=== PATIENT | female | born 2000 | race Caucasian/White ===

== ENCOUNTER → 2024-04-27 09:00 | Outpatient (REF) | payer OTHER, SELFPAY | LOC: PNTC 09:00 | PROVIDERS: ATTENDING PHYSICIAN Obstetrics & Gynecology | DX: Z29.13 Encounter for prophylactic Rho(D) immune globulin (principal) | CPT/HCPCS: 36415; 86850; 86900; 86901; 96372; J2790 ==

== ENCOUNTER 2024-07-05 09:32 | Observation (INO) | payer OTHER, SELFPAY ==
[2024-07-05 10:06] VITALS: BP 95/56; BMI 33.5
[2024-07-05 10:08] LABS: % Basophils 0.3 % (0-2); % Eosinophils 0.2 % (0-6); % Immature Granulocytes 0.6 % (0-0.5); % Monocytes 4.2 % (1.7-9.3); % Neutrophils 89.7 % (42.2-75.2); Absolute Immature Granulocytes 0.1 10^3/uL (0-0.05); Absolute Lymphocytes 0.5 10^3/uL (1.2-3.4); Absolute Monocytes 0.5 10^3/uL (0.1-0.6); Absolute Neutrophils 9.7 10^3/uL (1.4-6.5); Hematocrit 33.5 % (37.0-47.0); Hemoglobin 11.5 g/dL (12.0-16.0); Mean Corp Hgb Conc. 34.3 g/dL (33.0-37.0); Mean Corpuscular Hgb 30.5 pg (27.0-31.0); Mean Corpuscular Volume 88.9 fL (81.0-99.0); Mean Platelet Volume 10.5 fL (7.4-10.4); Nucleated Red Blood Cells % 0 %; Platelet Count 205 10^3/uL (130-400); Red Blood Cell Count 3.77 10^6/uL (4.20-5.40); Red Cell Dist. Width 13.4 % (11.5-14.5); White Blood Cell Count 10.8 10^3/uL (4.8-10.8)
[2024-07-05 10:20] LABS: ALT (SGPT) 17 U/L (0-35); AST (SGOT) 19 U/L (14-36); Albumin 3.5 g/dl (3.5-5.0); Alkaline Phosphatase 141 U/L (38-126); Blood Urea Nitrogen 9 mg/dl (7-17); Carbon Dioxide 22 mmol/L (22-30); Chloride 104 mmol/L (98-107); Estimated Creatinine Clearance > 125 ml/min; Glucose 95 mg/dl (70-99); Potassium 3.9 mmol/L (3.5-5.1); Sodium 133 mmol/L (135-145); Total Bilirubin 0.7 mg/dl (0.2-1.3); Total Protein 6.3 g/dl (6.3-8.2); eGFR > 60.00
[2024-07-05 10:29] LABS: Urine Albumin 2+ (Neg - Trace); Urine Bilirubin Negative (Negative); Urine Character Slightly Cloudy (Clear); Urine Color Yellow; Urine Glucose Negative (Negative); Urine Ketone 3+ (Negative); Urine Leukocyte 2+ (Negative); Urine Nitrite Positive (Negative); Urine Occult Blood Negative (Negative); Urine Urobilinogen Negative (Neg - 1+)
[2024-07-05 11:31] LABS: Urine Protein 8 mg/dl
[2024-07-05 11:53] LABS: Urine Amorphous Seen; Urine Squamous Cell >30 /LPF (Few)
[2024-07-05 11:54] LABS: Urine Bacteria Many (Negative); Urine Red Blood Cell 0-2 /HPF (0-2)
[2024-07-05] MEDS: PEPCID 20 MG IV (12:13)
[2024-07-05] MEDS: NSS (PRESERVATIVE FREE) 8 ML IV (12:13)
[2024-07-05] MEDS: LR 1000 IV (12:18)
[2024-07-05] MEDS: TYLENOL 650 MG PO (14:03)
[2024-07-05] MEDS: ZOFRAN 4 MG IV (15:21)
== END 2024-07-05 16:20 | disposition home or self-care (01) ==
LOC: LDRP 09:32
PROVIDERS: ADMITTING PHYSICIAN Obstetrics & Gynecology
DX: O26.893 Other specified pregnancy related conditions, third trimester (principal); R11.2 Nausea with vomiting, unspecified; R19.7 Diarrhea, unspecified; O99.820 Streptococcus B carrier state complicating pregnancy; Z3A.37 37 weeks gestation of pregnancy; K21.9 Gastro-esophageal reflux disease without esophagitis; E86.0 Dehydration; R51.9 Headache, unspecified; R53.81 Other malaise
CPT/HCPCS: 80053; 81003; 81015; 82570; 84156; 85025; 87086; G0378

== ENCOUNTER 2024-07-22 02:12 | Inpatient (IN) | payer OTHER, SELFPAY ==
[2024-07-22 02:33] VITALS: BP 124/81; BMI 33.7
[2024-07-22] MEDS: LR 1000 IV ×2 (03:26→08:00)
[2024-07-22 03:38] LABS: % Basophils 0.2 % (0-2); % Eosinophils 0.4 % (0-6); % Immature Granulocytes 0.9 % (0-0.5); % Lymphocytes 19.2 % (20.5-51.1); % Monocytes 6.2 % (1.7-9.3); % Neutrophils 73.1 % (42.2-75.2); Absolute Immature Granulocytes 0.1 10^3/uL (0-0.05); Absolute Monocytes 0.7 10^3/uL (0.1-0.6); Absolute Neutrophils 7.7 10^3/uL (1.4-6.5); Hemoglobin 10.9 g/dL (12.0-16.0); Mean Corpuscular Hgb 29.9 pg (27.0-31.0); Mean Corpuscular Volume 90.7 fL (81.0-99.0); Mean Platelet Volume 10.7 fL (7.4-10.4); Nucleated Red Blood Cells % 0 %; Platelet Count 212 10^3/uL (130-400); Red Blood Cell Count 3.64 10^6/uL (4.20-5.40); Red Cell Dist. Width 13.3 % (11.5-14.5); White Blood Cell Count 10.5 10^3/uL (4.8-10.8)
[2024-07-22] MEDS: PENICILLIN 110 UNITS IV (04:03)
[2024-07-22] MEDS: STADOL 1 MG IV ×2 (05:31→09:28)
[2024-07-22] MEDS: PENICILLIN 55 UNITS IV ×4 (08:00→19:52)
[2024-07-22] MEDS: FENTANYL/BUPIVACAINE 100 EPIDURAL ×2 (11:32→19:59)
[2024-07-22] MEDS: SUBLIMAZE 100 MCG EPIDURAL (11:32)
[2024-07-22] MEDS: TUMS CHEWABLE TABLET 400 MG PO (13:58)
[2024-07-22] MEDS: PITOCIN 30 UNITS/NSS 500 ML IV (14:46)
[2024-07-22] MEDS: CYTOTEC 800 MCG RECTAL (20:46)
[2024-07-22] MEDS: TRANEXAMIC ACID 100 IV (22:38)
[2024-07-22] MEDS: TYLENOL 650 MG PO (23:51)
[2024-07-22] MEDS: MOTRIN 600 MG PO (23:51)
[2024-07-23 05:25] LABS: Hematocrit 27.9 % (37.0-47.0); Hemoglobin 9.2 g/dL (12.0-16.0)
[2024-07-23] MEDS: PRENATAL PLUS 1 TABLET PO (07:49)
[2024-07-23] MEDS: CARAFATE 1 GRAM PO ×3 (07:49→16:59)
[2024-07-23] MEDS: SENOKOT-S 1 TABLET PO (07:50)
[2024-07-23 11:14] LABS: Syphilis/T. pallidum Ab Reflex Negative (Negative)
[2024-07-23] MEDS: MOTRIN 600 MG PO ×2 (12:21→21:22)
[2024-07-23] MEDS: TYLENOL 650 MG PO (14:29)
[2024-07-23] MEDS: RHOGAM 300 MCG IM (16:57)
[2024-07-24] MEDS: MOTRIN 600 MG PO (04:33)
[2024-07-24] MEDS: FEOSOL 325 MG PO (07:54)
[2024-07-24] MEDS: SENOKOT-S 1 TABLET PO (07:54)
[2024-07-24] MEDS: CARAFATE 1 GRAM PO (07:54)
[2024-07-24] MEDS: PRENATAL PLUS 1 TABLET PO (07:54)
[2024-07-24] MEDS: TYLENOL 650 MG PO (07:54)
== END 2024-07-24 11:04 | disposition home or self-care (01) | DRG 807 ==
LOC: LDRP 02:12
PROVIDERS: Student in an Organized Health Care Education/Training Program; ADMITTING PHYSICIAN Obstetrics & Gynecology
PROC: 10E0XZZ Delivery of Products of Conception, External Approach (ICD-10-PCS; 2024-07-22)
PROC: 0KQM0ZZ Repair Perineum Muscle, Open Approach (ICD-10-PCS; 2024-07-22)
DX: O70.1 Second degree perineal laceration during delivery (principal); Z37.0 Single live birth; O99.824 Streptococcus B carrier state complicating childbirth; Z3A.40 40 weeks gestation of pregnancy
CPT/HCPCS: 85014; 85018; 85025; 85461; 86780; 86850; 86900; 86901; 99406; J2790